=== PATIENT | male | born 1990 | race Hispanic/Latino ===

== ENCOUNTER 2017-09-07 21:47 | Emergency (ER) | payer OTHER, SELFPAY ==
[2017-09-07 22:17] VITALS: BP 102/60; PULSE 97; RESP 18; TEMP 38; O2SAT 97; BMI 31.6
--- NOTE | 2017-09-07 22:54 | ED_ITS ---
HPI - Nausea/Vomiting/Diarrhea General Chief complaint: Nausea/Vomiting/Diarrhea Stated complaint: THINKS FOOD POISONING Time Seen by Provider: 09/07/17 22:53 Source: patient Mode of arrival: ambulatory Limitations: no limitations History of Present Illness HPI Narrative: The patient developed nausea, vomiting and diarrhea this morning. It has been several hours since the last case of emesis. He denies fever, but he has had chills. He has upper abdominal discomfort. He has no radiation of the discomfort. He has no urinary symptoms. He has been around no one with similar symptoms. He has no recent travel. He has no associated URI symptoms, cough or chest discomfort. He denies chronic GI issues. Related Data Previous Rx's Medication Instructions Recorded ibuprofen 800 mg PO Q8HP PRN #30 tab 04/16/17 amoxicillin 500 mg PO BID #20 cap 06/11/17 Allergies Allergy/AdvReac Type Severity Reaction Status Date / Time No Known Drug Allergies Allergy Verified 09/07/17 22:22 Review of Systems Review of Systems All systems reviewed & are unremarkable except as noted in HPI and below Constitutional Reports chills, Denies fever(s), Denies headache(s), Denies lethargy and Denies weakness ENT Ears, Nose, Mouth, and Throat: Denies dizziness, Denies headache(s), Denies mouth lesions and Denies sore throat Cardiovascular Denies chest pain and Denies edema Respiratory Reports system reviewed and no additional complaints, except as docu, Denies chest congestion and Denies cough Gastrointestinal Gastrointestinal: Reports as per HPI, Denies melena, Denies coffee ground emesis , Reports cramping and Reports vomiting Genitourinary Denies dysuria Musculoskeletal Comments: no back pain Integumentary/Breasts Denies erythema and Denies rash Neurologic Denies confusion, Denies dizziness, Denies headache(s) and Denies weakness Psychiatric Denies confusion [facility] Social History Smoking Status: Never smoker Exam Initial Vital Signs Initial Vital Signs: Vital Signs Temperature 100.4 F H 09/07/17 22:17 Pulse Rate 97 H 09/07/17 22:17 Respiratory Rate 18 09/07/17 22:17 Blood Pressure 102/60 09/07/17 22:17 Pulse Oximetry 97 07/16/18 22:17 Const General: cooperative, healthy appearing and well developed Nutritional Appearance: well nourished Orientation: alert, awake, oriented x3 and not confused HENWI Throat: posterior oropharynx normal Eyes General: appearance normal, both eyes and all related structures Conjunctivae: conjunctivae normal Resp Effort & Inspection: normal respiratory effort, able to speak in complete sentences, no respiratory distress and no use of accessory muscles Auscultation: clear to auscultation bilaterally, no rales, no rhonchi and no wheezes Cardio Rate: regular rate Rhythm: regular rhythm Heart Sounds: no click, no gallops, no murmurs and no rubs Pulses: normal peripheral pulses GI Inspection: non-distended Palpation: soft, no hepatosplenomegaly, No pulsatile mass and tender Auscultation: normal bowel sounds Back/Spine/Pelvis Back: No CVA tenderness Skin General: no rashes or lesions noted Neuro General: alert, oriented x3, gait normal and no focal motor deficits Speech: speech normal Course Hospital Course: His symptoms have resolved with Zofran and Tylenol. He is tolerating oral hydration without discomfort or nausea. Orders Ordered: Discontinued Medications Acetaminophen (Tylenol) 650 mg PO NOW ONE Stop: 09/07/17 23:13 Last Admin: 09/07/17 23:15 Dose: 650 mg Ondansetron HCl (Zofran Odt) 4 mg PO NOW ONE Stop: 09/07/17 23:13 Last Admin: 09/07/17 23:15 Dose: 4 mg Vital Signs - 8 hr 09/07/17 22:17 09/07/17 23:59 Temperature 100.4 F H Pulse Rate 97 H 96 H Respiratory Rate 18 Blood Pressure 102/60 Blood Pressure [Left Arm] 114/71 Pulse Oximetry 97 100 Discharge Plan Departure Patient Disposition: Home, Self-Care Clinical Impression: Vomiting, Epigastric abdominal tenderness Instructions: DI for Vomiting -- Adult Activity Restrictions/Additional Instructions: Zofran every 4-6 hours as needed for nausea. Drink plenty of fluids, advance to a clear diet as we discussed, then on to a regular diet as tolerated. Return here as needed. Prescriptions: No Action ibuprofen 800 MG tablet 800 mg PO Q8HP PRNQty: 30 RF: 0 amoxicillin 500 MG capsule 500 mg PO BID Qty: 20 RF: 0 Stand Alone Forms: Work/School Restrictions
[2017-09-07] MEDS: ACETAMINOPHEN 325 MG TABLET 650 MG PO (23:15)
[2017-09-07] MEDS: ONDANSETRON 4 MG ODT PO (23:15)
[2017-09-07 23:59] VITALS: BP 114/71; PULSE 96; O2SAT 100
[2017-09-08] MEDS: ONDANSETRON 4 MG ODT PREPACK 1 BOTTLE MISC (00:24)
[2017-09-08 00:26] VITALS: BP 120/72; PULSE 75; RESP 16; O2SAT 100
== END 2017-09-08 00:27 | disposition home or self-care (01) ==
PROVIDERS: Emergency Provider Emergency Medicine; Family Provider Family Medicine; PCP Family Medicine
DX: R11.10 Vomiting, unspecified (principal); R10.13 Epigastric pain
CPT/HCPCS: 99282; 99283

== ENCOUNTER 2018-07-05 19:03 | Emergency (ER) | payer OTHER, SELFPAY ==
--- NOTE | 2018-07-05 19:10 | DI.RAD.S_ITS ---
PROCEDURE: XR RIBS RT MIN 3V W CXR 1V INDICATIONS: pain injury TECHNIQUE: 3 views of the right ribs were acquired, along with a single view chest. COMPARISON: [facility], , CHEST 2 VIEW, 04/16/2017, 14:25. FINDINGS: Surgical changes and devices: None. Bones and chest wall: No fractures or dislocations. No suspicious bony lesions. Overlying soft tissues appear unremarkable. Lungs and pleura: No pleural effusions or pneumothorax. Lungs appear clear. Mediastinum: Mediastinal contours appear normal. Heart size is normal. IMPRESSION: No visualized acute fracture or dislocation. However, if clinical concern and/or pain persist, short interval imaging followup in 7-10 days is recommended, as occult injury cannot be definitively excluded. Dictated by: Ines Calderón M.D. on 07/05/2018 at 19:44 Approved by: Ines Calderón M.D. on 07/05/2018 at 19:45
[2018-07-05 19:11] VITALS: BP 131/78; PULSE 76; RESP 16; TEMP 36.9; O2SAT 100; BMI 34.3
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
[2018-07-05 19:53] VITALS: PULSE 68; RESP 18; O2SAT 98
== END 2018-07-05 19:54 | disposition home or self-care (01) ==
PROVIDERS: Emergency Provider Emergency Medicine; Family Provider Family Medicine; PCP Family Medicine
DX: S20.219A Contusion of unspecified front wall of thorax, initial encounter (principal)
CPT/HCPCS: 71101; 99282; 99283

== ENCOUNTER → 2019-04-14 10:48 | Outpatient (CLI) | payer OTHER, SELFPAY ==
--- NOTE | 2019-04-14 | DI.RAD.S_ITS ---
PROCEDURE: XR CHEST 2V INDICATIONS: left chest pain TECHNIQUE: 2 views of the chest were acquired. COMPARISON: [facility], , CHEST 2 VIEW, 04/16/2017, 14:25. FINDINGS: Surgical changes and devices: None. Lungs and pleura: Lungs are clear. No pleural effusions or pneumothorax. Mediastinum: Mediastinal contours are normal. Heart size is normal. Bones and chest wall: No suspicious bony abnormalities. Soft tissues appear unremarkable. IMPRESSION: No acute cardiopulmonary disease. Dictated by: Serena Olsen M.D. on 04/14/2019 at 11:19 Approved by: Serena Olsen M.D. on 04/14/2019 at 11:19
== END ==
PROVIDERS: Family Provider Family Medicine; PCP Family Medicine; Referring Provider Family Medicine; Visit Provider Family Medicine
DX: R07.9 Chest pain, unspecified (principal)
CPT/HCPCS: 71046

== ENCOUNTER 2023-06-26 12:10 | Emergency (ER) | payer OTHER, SELFPAY ==
[2023-06-26 12:13] VITALS: BP 141/83; PULSE 89; RESP 16; TEMP 36.2; O2SAT 97; BMI 37.2
--- NOTE | 2023-06-26 12:37 | ED.WOUNDLAC ---
HPI - Wound/Laceration General Chief Complaint: Wound/Laceration Stated Complaint: thumb laceration Time Seen by Provider: 06/26/23 12:37 Source: patient Mode of arrival: Ambulatory History of Present Illness HPI narrative: 32-year-old male nonsmoker with noncontributory chronic medical history presents with a chief complaint of an accidental laceration to the left thumb just prior to arrival. He has pain and decreased range of motion. His tetanus is not current and will need to be updated. He denies any numbness but does have some tingling of his finger. Denies other injury and is otherwise well and free of complaint Related Data Previous Rx's Medication Instructions Recorded ibuprofen 800 mg tablet 800 mg PO Q8HP PRN #30 tabs 04/16/17 amoxicillin 500 mg capsule 500 mg PO BID #20 caps 06/11/17 cephalexin 500 mg capsule 500 mg PO Q6H 7 days #28 caps 06/26/23 Allergies Allergy/AdvReac Type Severity Reaction Status Date / Time dextromethorphan Allergy Hives Verified 06/26/23 12:16 [From Theraflu Day-Night Cold,Cough] diphenhydramine Allergy Hives Verified 06/26/23 12:16 [From Theraflu Day-Night Cold,Cough] phenylephrine Allergy Hives Verified 06/26/23 12:16 [From Theraflu Day-Night Cold,Cough] Review of Systems Review of Systems Narrative: GENERAL: Denies chills, fatigue, malaise, fever, sweats. HEENT: Denies sinus pain, ear pain, sore throat, difficulty swallowing, dizziness. RESPIRATORY: Denies dyspnea, cough, wheezing, hemoptysis, sputum. CARDIOVASCULAR: Denies chest pain, palpitations, orthopnea, edema, GASTROINTESTINAL: Denies nausea, vomiting, abdominal pain, diarrhea, constipation, melena. : Denies dysuria, frequency, incontinence, hematuria, urinary retention. MUSCULOSKELETAL: See HPI SKIN: Denies rash, skin lesions, or other NEUROLOGIC: Denies weakness, headache, numbness, change in speech, confusion, seizures, incoordination. PSYCHIATRIC: No concerning psychosocial issues. 12 point review of systems is negative except for those stated above Patient History Medical History No active medical problems Surgical History No pertinent past surgical history Social History marital status: Smoking Status: Never smoker Smoking Status: Never smoker alcohol intake frequency: a few times a month Substance Use Type: does not use Exam Narrative Exam Narrative: GEN: AOx3 and in mild distress EYES: Pupils are equal, round, and reactive to light and accommodation. Extraoccular muscles are intact bilaterally. There is no subconjunctival hemorrhage or exudate. CHEST: Lungs are clear to auscultation bilaterally and free of wheezes, rales, or rhonchi. Heart rate is regular rhythm, there are no murmurs, clicks, rubs, or gallops. There is no chest wall tenderness. ABD: Abdomen is soft and nontender. There is no guarding or rebound. Bowel sounds are normal in all 4 quadrants. There is no mass or organomegaly. EXT: 1.5cm laceration on flexor surface of L thumb overlying the proximal phalanx. No active bleeding. Unable to visualize FPL, however he is unable to flex at the IP joint raising the suspicion of a tendon injury. SKIN: Warm, pink, and dry. No erythema or rash Initial Vital Signs Initial Vital Signs: Vital Signs Temperature 97.2 F L 06/26/23 12:13 Pulse Rate 89 06/26/23 12:13 Respiratory Rate 16 06/26/23 12:13 Blood Pressure 141/83 H 06/26/23 12:13 Pulse Oximetry 97 06/26/23 12:13 Oxygen Delivery Method Room Air 06/26/23 12:13 Procedures Laceration Repair Laceration 1: Site: hand (L thumb) Side (If applicable): left Size (cm): 1.5 Description: linear Depth: involves muscle layer Pre-repair: wound explored, irrigated extensively and deep structures intact (unable to visualize flexor tendon) Skin layer closed with: nylon Skin layer suture size: 4-0 Number of sutures: 3 Technique: simple, interrupted Nerve Block Nerve Block 1: Local Anesthetic: lidocaine 2% Amount of anesthesia used (mL): 3 Side: left Nerve Blocks: digital Procedure Successful: Yes Patient Tolerated Procedure: Well Course Orders Ordered: Discontinued Medications Bacitracin (Bacitracin Oint 0.9 Gm Pckt) 1 applic TOP NOW ONE Stop: 06/26/23 13:26 Last Admin: 06/26/23 13:29 Dose: 1 applic Diphtheria/Tetanus/Acell Pertussis (Tet,Diph,Pertuss(Acell),Vac/Pf 0.5 Ml Syringe) 0.5 ml IM .ONCE ONE Stop: 06/26/23 12:55 Last Admin: 06/26/23 13:21 Dose: 0.5 ml Lidocaine HCl (Lidocaine 2% Inj Mdv 20ml) 20 ml INJ INTRA-OP ONE Stop: 06/26/23 12:55 Consultations Consultation #1: call placed to [facility] (Dr. Salazar) Vital Signs Vital signs: Vital Signs - 8 hr 06/26/23 12:13 Temperature 97.2 F L Pulse Rate 89 Respiratory Rate 16 Blood Pressure 141/83 H Pulse Oximetry 97 Oxygen Delivery Method Room Air MDM - Wound/Laceration MDM Narrative Medical decision making narrative: [32] year old patient presents with accidental laceration to left thumb Multiple etiologies for patient's symptoms considered including, but not limited to: [Superficial laceration versus possible tendon involvement] Prior Charts reviewed in our EMR Primary Historian: patient Labs not indicated Imaging not indicated Consultations: Discussion with on-call orthopedist, agrees with plan, will see in office next week. Findings and discharge diagnosis discussed with patient/family followed by verbalization of understanding Return precautions discussed with patient/family whom verbalize understanding of diagnosis and plan Discharge Plan Departure Patient Disposition: Home Clinical Impression: Laceration of left thumb with complication Qualifiers: Encounter type: initial encounter Qualified Code(s): S61.012A - Laceration without foreign body of left thumb without damage to nail, initial encounter Instructions: DI for Laceration Repair Activity Restrictions/Additional Instructions: *You have been diagnosed with [Left thumb laceration with concern for possible tendon injury ] *What to do: *Please continue to take your regular medications as directed. [x ] New medication prescriptions sent to your pharmacy: [ [facility] in [facility]] [ ] New medication written as a paper prescription [ ] No new medications given *Please follow up with Dr. Salazar at [facility]. Call the office today and let them know that you were seen and evaluated in the emergency department and we would like you seen in follow-up. I spoke with Dr. Salazar today and she took down your contact information, stating that she or 1 of her partners will get you in next week. *Return to Emergency Department if you should have any new, worsening or concerning symptoms, such as [fever greater than 101 F, shaking chills, worsening pain, persistent vomiting or other bothersome symptoms] Prescriptions: New cephalexin 500 mg capsule 500 mg PO Q6H 7 Days Qty: 28 0RF No Action ibuprofen 800 MG tablet 800 mg PO Q8HP PRNQty: 30 0RF amoxicillin 500 MG capsule 500 mg PO BID Qty: 20 0RF Referrals: Ashvin Cedillo MD [Primary Care Provider] - Yuki Salazar MD [Physician] - Stand Alone Forms: Patient Portal/API
[2023-06-26] MEDS: TET,DIPH,PERTUSS(ACELL),VAC/PF 0.5 ML SYRINGE IM (13:21)
[2023-06-26] MEDS: BACITRACIN OINT 0.9 GM PCKT 1 APPLIC TOP (13:29)
== END 2023-06-26 13:48 | disposition home or self-care (01) ==
PROVIDERS: Emergency Provider Emergency Medicine; Family Provider Family Medicine; PCP Family Medicine
DX: S61.012A Laceration without foreign body of left thumb without damage to nail, initial encounter (principal); Z23 Encounter for immunization; X58.XXXA Exposure to other specified factors, initial encounter
CPT/HCPCS: 12001; 64450; 90471; 99283; 90715